=== PATIENT | male | born 1960 | race African-American/Black ===

== ENCOUNTER 2020-07-17 18:15 | Emergency (ER) | payer SELFPAY ==
[~2020-07-17] VITALS: Ht 175.3 cm; Wt 73.0 kg
[2020-07-17 18:36] VITALS: BP 124/85
[2020-07-17] MEDS ORDERED: KETOROLAC 60MG/2ML VIAL IM ONE (19:15)
== END 2020-07-17 20:27 | disposition home or self-care (01) ==
LOC: ER 18:15
DX: M54.2 Cervicalgia (principal); R51.9 Headache, unspecified; F17.290 Nicotine dependence, other tobacco product, uncomplicated; Z88.6 Allergy status to analgesic agent
CPT/HCPCS: 72040; 96372; 99283; J1885